=== PATIENT | female | born 1955 | race Caucasian/White ===

== ENCOUNTER 2022-05-30 15:55 | Outpatient (CLI) | payer MEDICARE, SELFPAY ==
[2022-05-30 18:54] LABS: Alanine Aminotransferase 20 U/L (6-35); Albumin Level 4.8 g/dL (3.5-5.1); Alkaline Phosphatase 61 U/L (38-126); Anion Gap 6 mmol/L (8-16); Aspartate Amino Transferase 32 U/L (14-36); Bilirubin,Total 0.7 mg/dL (0.2-1.3); Blood Urea Nitrogen 13 mg/dL (7-17); Calcium 9.8 mg/dL (8.4-10.2); Carbon Dioxide 31 mmol/L (22-30); Chloride 98 mmol/L (98-107); Cholesterol 177 mg/dL (0-200); Estimated Glomerular Filt Rate > 60; Glucose 108 mg/dL (65-110); HDL Direct 40 mg/dL; Potassium 3.9 mmol/L (3.4-5.0); Sodium 135 mmol/L (137-145); Triglycerides 250 mg/dL (<150)
[2022-05-30 18:58] LABS: Basophils Absolute Auto 0.1 K/mm3 (0.0-0.1); Basophils Percent Auto 0.7 % (0.2-1.2); Eosinophils Absolute Auto 0.2 K/mm3 (0-0.3); Eosinophils Percent Auto 1.6 % (0-4.4); Hematocrit 44.4 % (37.0-47.0); Hemoglobin 14.6 g/dL (12.0-15.0); Immature Granulocyte Absolute 0.03 K/mm3 (0.00-0.031); Immature Granulocyte Percent A 0.3 % (0-0.5); Lymphocytes Absolute Auto 3.02 K/mm3 (0.9-3.2); Lymphocytes Percent Auto 28.3 % (18.3-44.2); Mean Corpuscular HGB Conc 32.9 g/dl (32-36); Mean Corpuscular Hemoglobin 29.3 pg (26-34); Mean Platelet Volume 10.9 fl (7.4-10.4); Monocytes Absolute Auto 0.7 K/mm3 (0.1-0.6); Monocytes Percent Auto 6.7 % (2.6-8.5); Neutrophils Absolute Auto 6.7 K/mm3 (1.3-6.7); Neutrophils Percent Auto 62.4 % (45.5-73.1); Platelet Count Result 221 k/mm3 (150-375); Red Blood Count 4.99 M/mm3 (4.2-5.4); Red Cell Distribution Width 12.4 % (11.5-14.5); White Blood Count 10.7 K/mm3 (4.5-10.0)
[2022-05-30 19:04] LABS: Hemoglobin A1C 7.4 % (<5.7)
[2022-05-30 19:05] LABS: LDL Cholesterol Direct 79 mg/dL
[2022-05-30 20:30] LABS: Vitamin D 25 Hydroxy 35.3 ng/mL
== END 2022-05-30 15:56 | disposition home or self-care (01) ==
LOC: ANHGOSHLAB 15:56
PROVIDERS: PCP Family Medicine; Visit Provider Nurse Practitioner Family
DX: G47.00 Insomnia, unspecified (principal); E11.9 Type 2 diabetes mellitus without complications; I10 Essential (primary) hypertension; E78.5 Hyperlipidemia, unspecified; E55.9 Vitamin D deficiency, unspecified
CPT/HCPCS: 36415; 80053; 80061; 82306; 83036; 84443; 85025

== ENCOUNTER 2024-08-01 01:03 | Day surgery (SDC) | payer MEDICARE, SELFPAY ==
--- NOTE | 2024-07-23 12:51 | PC.NURSE ---
Spoke with patient regarding medication cilostazol. Patient verbalizes this is all so confusing, offered to call pts daughter Dora who is driving her and she refuses this-states she is to busy- I asked pt to write the instructions down in the case and she did- she sounded frustrated but states the last dose is to be taken on 07/27/2024 and the Endoscopist will instruct them when to restart after the procedure.
--- OUTSIDE RECORDS SUMMARY | 2024-08-01 01:05 | XMS_ITS | Clinical Summary ---
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 Gender Identity Not on file Sexual Orientation Not on file Plan of Treatment Health Maintenance Due Date Last Done Comments Colorectal Cancer Screening Colonoscopy (10 Years) 1953 Hepatitis C 11/09/1971 DTaP, Tdap and Td Vaccines ( 1 - Tdap) 1972 Mammogram Screening 1993 Zoster Vaccines (1 of 2) 11/09/2003 Annual Medicare Wellness Visit 2018 Dexa Scan (General) 2018 Pneumococcal Vaccine: 65+ Ye ars (1 of 1 - PCV) 2018 COVID-19 Vaccine ( - 2023-2 5 season) 2024 Influenza Adult (#1) 2024 RSV Immunization or 60+ Years (1 - 1-dose 75+ series) 2028 Meningococcal B Vaccine Aged Out No l onger eligible based on patient's age to complete this topic Meningococcal Vaccine Aged Out No justin mary eligible based on patient's age to complete this topic RSV Immunizations Under 20 Months Aged Out No longer eligible based on patient's age to complete this topic Insurance [employer] Care Teams Joint Sealer Relationship Specialty Start Date End Date Adrienne Bojorquez MD [id number] [facility] [address] [place] [address] PCP - General FAMILY PRACTICE 06/09/23
[2024-08-01 06:56] VITALS: BP 183/78; PULSE 113; RESP 18; TEMP 36.2; O2SAT 98
[2024-08-01] MEDS: LACTATED RINGERS 1,000 ML 150 ML IV CONT (07:09)
[2024-08-01 07:10] LABS: Glucose Point of Care 136 mg/dl (65-105)
--- NOTE | 2024-08-01 07:14 | P.PNAN_ITS ---
Anes - Initial Pre Proc Eval Procedure: Operation Date: 08/01/24 08:00 Proposed Procedures p Screening Colonoscopy - Jeet William MD Date/Time: 08/01/24 07:14 Surgeon: Jeet William MD Pre Op Diagnosis: personal hx colon polyps Patient Data Age: 68 Gender: F Height: 1.68 m Weight: 81.7 kg Last Vital Signs Temp 97.2 F L 08/01/24 06:56 Pulse 113 H 08/01/24 06:56 Resp 18 08/01/24 06:56 BP 183/78 H 08/01/24 06:56 Pulse Ox 98 08/01/24 06:56 O2 Del Method Room Air 08/01/24 06:56 Allergies Allergy/AdvReac Type Severity Reaction Status Date / Time No Known Allergies Allergy Verified 08/01/24 06:47 Home Medications ?Medication ?Instructions ?Recorded ?Confirmed ?Type aspirin 325 mg tablet (Bernadine 325 mg PO DAILY 05/13/19 08/01/24 History Aspirin) multivitamin (Daily Multi-Vitamin 1 tablet PO DAILY 12/11/19 08/01/24 History tablet) blood-glucose meter (True Metrix #1 ea 02/09/23 02/27/24 Rx Air Glucose Meter kit) blood sugar diagnostic (True #100 ea 07/07/23 02/27/24 Rx Metrix Glucose Test Strip) cholecalciferol (vitamin D3) 50 50 mcg PO DAILY #90 tabs 09/20/23 08/01/24 Rx mcg (2,000 unit) tablet lancets 33 gauge (TRUEplus Lancets) #200 ea 12/04/23 02/27/24 Rx coenzyme Q10 100 mg tablet 100 mg PO DAILY 02/27/24 08/01/24 History cilostazol 100 mg tablet 100 mg PO BID #180 tabs 03/21/24 08/01/24 Rx amlodipine 5 mg tablet 5 mg PO DAILY #90 tabs 04/04/24 08/01/24 Rx metformin 500 mg tablet,extended 500 mg PO BID #180 tabs 05/07/24 08/01/24 Rx release 24 hr lisinopril 40 mg tablet 40 mg PO DAILY #90 tabs 06/03/24 08/01/24 Rx rosuvastatin 40 mg tablet 40 mg PO QHS #90 tabs 06/03/24 08/01/24 Rx glipizide 10 mg tablet, extended 10 mg PO DAILY #90 tabs 06/17/24 08/01/24 Rx release 24 hr Laboratory Tests 08/01/24 07:08 POC Capillary Glucose 136 H mg/dl (65-105) Patient hx anesthesia problems: none Family hx anesthesia problems: none Results Review: All pre-operative results and documents have been reviewed as part of the pre- operative evaluation. [facility] Past Medical History Medical History History of colon polyps Vitamin D deficiency Peripheral vascular disease Stroke 2014 GERD without esophagitis Type 2 diabetes mellitus without complication, without long-term current use of insulin Dyslipidemia Essential (primary) hypertension Surgical History Surgical History History of dilatation and curettage Family History Family History Father Diabetes mellitus Heart disease Mother Heart disease Grandparent Heart disease Carcinoma of colon Sibling Diabetes mellitus Son Heart disease Father Diabetes mellitus Family history of cardiovascular disease Sibling Diabetes mellitus Mother Family history of cardiovascular disease Grandparent Family history of cardiovascular disease Carcinoma of colon Social History Social History Social History: Caffeine- coffee Smoking packs per day: 1 Smoking cigarettes per day: 20.0 Years smoked: 60 Smoking pack-years: 60.00 Smoking status: Current every day smoker Tobacco type: cigarettes Second hand tobacco smoke exposure: Yes Alcohol intake: never Substance use: never Substance use type: does not use Lack of Transportation: No Lack of Food: Never True Current Housing: I Have Housing Concerned About Future Housing: No Difficulty Paying Gas/Electric Bills: No Difficulty Paying for Meds: No Currently Unemployed: No Education: Associate Degree Difficulty w/ Childcare or Family Care: No Living arrangements: with family Occupation/Education: retired Gender identity (if verbalized by the patient): Female Spiritual care concerns: No Agree to blood products: Yes Anes - Eval Final PreProcedure Day of Procedure 08/01/24 07:14 Patient weight: obese Lungs: normal air movement Airway: Mallampati scale and special considerations (Edentulous. ) Neurological: alert and oriented Last oral intake: >/= 8 hours ASA classification: III Emergent: no Anesthetic plan: proceed Anesthesia type and monitoring: general GIVS and standard monitoring Results Review: All pre-operative results and documents have been reviewed as part of the pre- operative evaluation. HTN, hyperlipidemia, DM fsbs 130. Pt had been sipping water from water fountain in waiting room at 630, will delay 2 hours to meet ASA recs. Informed Consent: The patient's anesthetic plan and its attendant risks and benefits were discussed with the patient/family/POA. Questions were solicited and answers provided to the satisfaction of the patient/family/POA.
--- NOTE | 2024-08-01 08:19 | PM.HPGS ---
History of Present Illness History of Present Illness Consent: Risks, benefits, and alternatives have been discussed and questions answered. Patient agrees to proceed with procedure. Chief complaint: personal hx colon polyps Narrative: Liberty Baugh is a 68 year old female with last colonoscopy 10 years ago Review of Systems Review of Systems: All systems reviewed & are unremarkable except as noted in HPI and below PMFSH Past Medical History Medical History (Updated 08/01/24 @ 08:20 by Jeet William MD) Colon cancer screening History of colon polyps Vitamin D deficiency Peripheral vascular disease Stroke 2014 GERD without esophagitis Type 2 diabetes mellitus without complication, without long-term current use of insulin Dyslipidemia Essential (primary) hypertension Surgical History Surgical History History of dilatation and curettage Family History Family History Father Diabetes mellitus Heart disease Mother Heart disease Grandparent Heart disease Carcinoma of colon Sibling Diabetes mellitus Son Heart disease Father Diabetes mellitus Family history of cardiovascular disease Sibling Diabetes mellitus Mother Family history of cardiovascular disease Grandparent Family history of cardiovascular disease Carcinoma of colon Social History Social History Social History: Caffeine- coffee Smoking packs per day: 1 Smoking cigarettes per day: 20.0 Years smoked: 60 Smoking pack-years: 60.00 Smoking status: Current every day smoker Tobacco type: cigarettes Second hand tobacco smoke exposure: Yes Alcohol intake: never Substance use: never Substance use type: does not use Lack of Transportation: No Lack of Food: Never True Current Housing: I Have Housing Concerned About Future Housing: No Difficulty Paying Gas/Electric Bills: No Difficulty Paying for Meds: No Currently Unemployed: No Education: Associate Degree Difficulty w/ Childcare or Family Care: No Living arrangements: with family Occupation/Education: retired Gender identity (if verbalized by the patient): Female Spiritual care concerns: No Agree to blood products: Yes Meds Home Medications and Allergies Home Medications ?Medication ?Instructions ?Recorded ?Confirmed ?Type aspirin 325 mg tablet (Bernadine 325 mg PO DAILY 05/13/19 08/01/24 History Aspirin) multivitamin (Daily Multi-Vitamin 1 tablet PO DAILY 12/11/19 08/01/24 History tablet) blood-glucose meter (True Metrix #1 ea 02/09/23 02/27/24 Rx Air Glucose Meter kit) blood sugar diagnostic (True #100 ea 07/07/23 02/27/24 Rx Metrix Glucose Test Strip) cholecalciferol (vitamin D3) 50 50 mcg PO DAILY #90 tabs 09/20/23 08/01/24 Rx mcg (2,000 unit) tablet lancets 33 gauge (TRUEplus Lancets) #200 ea 12/04/23 02/27/24 Rx coenzyme Q10 100 mg tablet 100 mg PO DAILY 02/27/24 08/01/24 History cilostazol 100 mg tablet 100 mg PO BID #180 tabs 03/21/24 08/01/24 Rx amlodipine 5 mg tablet 5 mg PO DAILY #90 tabs 04/04/24 08/01/24 Rx metformin 500 mg tablet,extended 500 mg PO BID #180 tabs 05/07/24 08/01/24 Rx release 24 hr lisinopril 40 mg tablet 40 mg PO DAILY #90 tabs 06/03/24 08/01/24 Rx rosuvastatin 40 mg tablet 40 mg PO QHS #90 tabs 06/03/24 08/01/24 Rx glipizide 10 mg tablet, extended 10 mg PO DAILY #90 tabs 06/17/24 08/01/24 Rx release 24 hr Allergies Allergy/AdvReac Type Severity Reaction Status Date / Time No Known Allergies Allergy Verified 08/01/24 06:47 Vital Signs Vital Signs - 24 hr 08/01/24 06:56 Temperature 97.2 F L Pulse Rate 113 H Respiratory Rate 18 Blood Pressure 183/78 H Pulse Oximetry 98 Oxygen Delivery Room Air Exam Const: General: comfortable and no acute distress HENMT: Face/Nose/Sinus: Normal nares present Eyes: General: appearance normal, both eyes and all related structures Neck: Neck: no JVD Resp: Auscultation: clear to auscultation bilaterally Cardio: Rate: regular rate Rhythm: regular rhythm GI: Inspection: non-distended GI Palp: Yes Soft to palpation Skin: General skin exam: normal color Neuro: Speech: normal speech Extrem: General: normal to inspection Psych: Mental Status: mental status grossly normal Assessment and Plan Assessment and plan (1) Colon cancer screening: Code(s): Z12.11 - Encounter for screening for malignant neoplasm of colon Status: Acute Assessment and Plan: colonoscopy
[2024-08-01 08:58] VITALS: BP 113/55; PULSE 95; RESP 23; O2SAT 94
[2024-08-01 09:08] VITALS: BP 140/73; PULSE 103; RESP 31; O2SAT 96
[2024-08-01 09:18] VITALS: BP 159/106; PULSE 102; RESP 19; O2SAT 98
== END 2024-08-01 09:33 | disposition home or self-care (01) ==
PROVIDERS: PCP Family Medicine; Visit Provider Internal Medicine Gastroenterology
PROC: 0DJD8ZZ Inspection of Lower Intestinal Tract, Via Natural or Artificial Opening Endoscopic (ICD-10-PCS; CPT 45378; principal; 2024-08-01 08:00)
DX: Z12.11 Encounter for screening for malignant neoplasm of colon (principal); D12.2 Benign neoplasm of ascending colon; D12.3 Benign neoplasm of transverse colon; D12.5 Benign neoplasm of sigmoid colon; K64.8 Other hemorrhoids; K57.30 Diverticulosis of large intestine without perforation or abscess without bleeding; E78.5 Hyperlipidemia, unspecified; I10 Essential (primary) hypertension; E11.9 Type 2 diabetes mellitus without complications; K21.9 Gastro-esophageal reflux disease without esophagitis; E55.9 Vitamin D deficiency, unspecified; I73.9 Peripheral vascular disease, unspecified; F17.210 Nicotine dependence, cigarettes, uncomplicated; E66.9 Obesity, unspecified; Z68.29 Body mass index [BMI] 29.0-29.9, adult; Z79.82 Long term (current) use of aspirin; Z79.84 Long term (current) use of oral hypoglycemic drugs; Z98.890 Other specified postprocedural states; Z86.73 Personal history of transient ischemic attack (TIA), and cerebral infarction without residual deficits; Z80.0 Family history of malignant neoplasm of digestive organs; Z82.49 Family history of ischemic heart disease and other diseases of the circulatory system
CPT/HCPCS: 45390; 82948; 88305; J2003; J2704; J7120

== ENCOUNTER 2024-08-27 15:35 | Outpatient (CLI) | payer MEDICARE, SELFPAY ==
--- OUTSIDE RECORDS SUMMARY | 2024-08-27 17:35 | XMS_ITS | Clinical Summary ---
Author Organization 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
[2024-08-27 19:39] LABS: Alanine Aminotransferase 19 U/L (6-35); Albumin Level 4.5 g/dL (3.5-5.1); Alkaline Phosphatase 59 U/L (38-126); Anion Gap 9 mmol/L (4-12); Aspartate Amino Transferase 24 U/L (14-36); Bilirubin,Total 0.5 mg/dL (0.2-1.3); Blood Urea Nitrogen 8 mg/dL (7-17); Carbon Dioxide 27 mmol/L (22-30); Chloride 101 mmol/L (98-107); Estimated Glomerular Filt Rate > 60; Glucose 174 mg/dL (65-110); Potassium 4.6 mmol/L (3.4-5.0); Sodium 137 mmol/L (137-145)
== END 2024-08-27 15:36 | disposition home or self-care (01) ==
LOC: ANHGOSHLAB 15:36
PROVIDERS: PCP Family Medicine; Visit Provider Family Medicine
DX: E11.9 Type 2 diabetes mellitus without complications (principal); I10 Essential (primary) hypertension; Z12.31 Encounter for screening mammogram for malignant neoplasm of breast
CPT/HCPCS: 36415; 80053; 83036